=== PATIENT | male | born 1975 | race Caucasian/White ===

== ENCOUNTER 2019-08-10 05:32 | Emergency (ER) | payer OTHER ==
[~2019-08-10] VITALS: Ht 177.8 cm; Wt 83.9 kg
[2019-08-10 05:33] VITALS: BP 131/92
[2019-08-10] MEDS ORDERED: TRAMADOL 50 MG50 MG PO (06:19)
== END 2019-08-10 06:27 | disposition home or self-care (01) ==
LOC: M.ERS 05:32
DX: S90.811A Abrasion, right foot, initial encounter (principal); F17.210 Nicotine dependence, cigarettes, uncomplicated; V29.9XXA Motorcycle rider (driver) (passenger) injured in unspecified traffic accident, initial encounter; Y93.89 Activity, other specified; Y92.89 Other specified places as the place of occurrence of the external cause; Y99.8 Other external cause status